=== PATIENT | female | born 1965 | race American Indian/Alaskan Native ===

== ENCOUNTER 2017-10-21 13:22 | Emergency (ER) | payer OTHER ==
[2017-10-21 13:44] VITALS: O2SAT 100
[2017-10-21 14:22] LABS: BASO # 0.1 K/uL (0.0-0.2); EOS # 0.1 K/uL (0.0-0.7); EOS % 1.8 % (0.0-4.0); HEMOGLOBIN 14.8 g/dL (11.0-16.0); LYMPH # 2.2 K/uL (1.0-4.3); LYMPH % 32.6 % (20.0-40.0); MEAN CELL VOLUME 86.6 fL (81.0-99.0); MEAN CORPUSCULAR HEMOGLOBIN 28.5 pg (27.0-31.0); MEAN CORPUSCULAR HGB CONC 32.9 g/dL (33.0-37.0); MEAN PLATELET VOLUME 7.8 fL (7.2-11.7); MONO # 0.4 K/uL (0.0-0.8); MONO % 6.6 % (0.0-10.0); NEUT # 3.9 K/uL (1.8-7.0); RBC 5.18 Mil/uL (3.80-5.20); RED CELL DISTRIBUTION WIDTH 13.5 % (11.5-14.5); WHITE BLOOD COUNT 6.8 K/uL (4.8-10.8)
[2017-10-21 14:26] LABS: HCG,QUALITATIVE URINE NEGATIVE (NEGATIVE)
[2017-10-21 14:33] LABS: CALCIUM 9.8 mg/dl (8.6-10.4); GFR AFRICAN-AMERICAN > 60; GFR NON-AFRICAN AMERICAN > 60
[2017-10-21 14:35] LABS: SQUAMOUS EPITHIAL 4 /hpf (0-5); URINE BACTERIA RARE (<OCC); URINE BILIRUBIN NEGATIVE (NEGATIVE); URINE BLOOD 1+ (NEGATIVE); URINE CLARITY Clear (Clear); URINE COLOR Yellow (YELLOW); URINE GLUCOSE (UA) NORMAL (Normal); URINE LEUKOCYTE ESTERASE TRACE Leu/uL (Negative); URINE PROTEIN NEGATIVE (NEGATIVE); URINE UROBILINOGEN NORMAL mg/dL (0.2-1.0)
[2017-10-21 14:55] LABS: ALB/GLOB RATIO 1.4 (1.0-2.1); ALBUMIN 4.5 g/dL (3.5-5.0); ALT/SGPT 15 U/L (9-52); AST/SGOT 29 U/L (14-36); BLOOD UREA NITROGEN 17 mg/dL (7-17)
--- NOTE | 2017-10-21 15:28 | C.PDOC ---
History Of Present Illness 52-year-old female presents to the emergency department complaining of elevated blood pressure since yesterday. Patient states that her pressure was 180-190s systolic at home. She denies hx of hypertension, but states she checks it regularly at home because she has a family history of HTN. She admits to similar episode last summer which resolved spontaneously. Patient is currently complaining of a mild left sided headache. She denies visual changes, nausea/ vomiting, dizziness, chest pain, shortness of breath, palpitations, dietary indiscretions, medication changes, sensory changes, facial droop, slurred speech , extremity weakness, or any other associated symptoms. Time Seen by Provider: 10/21/17 13:49 Chief Complaint (Nursing): High Blood Pressure History Per: Patient History/Exam Limitations: no limitations Onset/Duration Of Symptoms: Days Current Symptoms Are (Timing): Still Present Severity: Mild Exacerbating Factor(s): Pos: None Past Medical History Reviewed: Historical Data, Nursing Documentation, Vital Signs Vital Signs: Last Vital Signs Temp 99.3 F 10/21/17 15:43 Pulse 61 10/21/17 15:43 Resp 12 10/21/17 15:43 BP 169/90 H 10/21/17 15:43 Pulse Ox 100 10/21/17 17:58 - Medical History PMH: No Chronic Diseases Family History: States: No Known Family Hx - Social History Hx Alcohol Use: Yes Hx Substance Use: No - Immunization History Hx Tetanus Toxoid Vaccination: No Hx Influenza Vaccination: No Hx Pneumococcal Vaccination: No Review Of Systems Constitutional: Negative for: Fever, Chills Cardiovascular: Negative for: Chest Pain, Palpitations Respiratory: Negative for: Shortness of Breath Gastrointestinal: Negative for: Nausea, Vomiting, Abdominal Pain, Diarrhea Genitourinary: Negative for: Dysuria, Hematuria Musculoskeletal: Negative for: Neck Pain, Back Pain Neurological: Positive for: Headache. Negative for: Weakness, Numbness, Dizziness Physical Exam - Physical Exam Appears: Well, Non-toxic, No Acute Distress Skin: Normal Color, Warm, Dry, No Rash Head: Atraumatic, Normacephalic Eye(s): bilateral: Normal Inspection, PERRL, EOMI Oral Mucosa: Moist Neck: Normal, Normal ROM Cardiovascular: Rhythm Regular Respiratory: Normal Breath Sounds, No Rales, No Rhonchi, No Wheezing Gastrointestinal/Abdominal: Normal Exam, Bowel Sounds, Soft, No Tenderness Back: Normal Inspection Extremity: Normal ROM, No Pedal Edema, No Calf Tenderness Pulses: Left Dorsalis Pedis: Normal, Right Dorsalis Pedis: Normal Neurological/Psych: Oriented x3, Normal Speech, Normal Cognition, Normal Cranial Nerves, No Cerebellar Signs, Normal Motor, Normal Sensation Gait: Steady ED Course And Treatment - Laboratory Results Result Diagrams: 10/21/17 14:16 10/21/17 14:16 O2 Sat by Pulse Oximetry: 100 (RA) Pulse Ox Interpretation: Normal Progress Note: Bloodwork and UA, Upreg ordered and reviewed. Reevaluation Time: 15:30 Reassessment Condition: Improved (On reassessment, patient is resting comfortably and headache has resolved. BP has improved, and patient is well appearing and comfortable being dicharged home. Patient instructed to follow up with PMD in 1-2 days, and understands she should return to ED if symptoms worsen.) Disposition Counseled Patient/Family Regarding: Studies Performed, Diagnosis, Need For Followup - Disposition Referrals: Linda Staley MD [Staff Provider] - Disposition: HOME/ ROUTINE Disposition Time: 15:30 Condition: STABLE Additional Instructions: FOLLOW UP WITH YOUR DOCTOR IN 1-2 DAYS RETURN TO ER IF YOU HAVE ANY CONCERNING SYMPTOMS Instructions: High Blood Pressure (DC) Forms: [employer] (American) Print Language: CITIZEN OF [place] - Clinical Impression Clinical Impression: Blood pressure elevated without history of HTN - Scribe Statement The provider has reviewed the documentation as recorded by the Scribe (Chemo Avila) All medical record entries made by the Scribe were at my direction and personally dictated by me. I have reviewed the chart and agree that the record accurately reflects my personal performance of the history, physical exam, medical decision making, and the department course for this patient. I have also personally directed, reviewed, and agree with the discharge instructions and disposition.
[2017-10-21 15:44] VITALS: BP 169/90; PULSE 61; RESP 12; TEMP 99.3
== END 2017-10-21 15:44 | disposition home or self-care (01) ==
LOC: C.ER 13:22
DX: R03.0 Elevated blood-pressure reading, without diagnosis of hypertension (principal)

== ENCOUNTER 2017-10-27 15:07 | Emergency (ER) | payer OTHER ==
[2017-10-27] MEDS ORDERED: Enalaprilat 2.5 MG/2 ML IV STA (22:13)
[2017-10-27 22:29] LABS: BASO % 0.6 % (0.0-2.0); EOS # 0.2 K/uL (0.0-0.7); EOS % 2.6 % (0.0-4.0); HEMOGLOBIN 15.5 g/dL (11.0-16.0); LYMPH # 2.6 K/uL (1.0-4.3); LYMPH % 38.2 % (20.0-40.0); MEAN CELL VOLUME 86.1 fL (81.0-99.0); MEAN CORPUSCULAR HEMOGLOBIN 28.2 pg (27.0-31.0); MEAN CORPUSCULAR HGB CONC 32.8 g/dL (33.0-37.0); MEAN PLATELET VOLUME 7.6 fL (7.2-11.7); MONO # 0.3 K/uL (0.0-0.8); MONO % 4.6 % (0.0-10.0); NEUT # 3.7 K/uL (1.8-7.0); NRBC % 0.1 % (0.0-2.0); RBC 5.49 Mil/uL (3.80-5.20); RED CELL DISTRIBUTION WIDTH 13.6 % (11.5-14.5); WHITE BLOOD COUNT 6.8 K/uL (4.8-10.8)
[2017-10-27] MEDS ORDERED: Enalaprilat 2.5 MG/2 ML ONE (22:31)
[2017-10-27 22:48] VITALS: O2SAT 100
[2017-10-27 22:54] LABS: ALB/GLOB RATIO 1.5 (1.0-2.1); ALBUMIN 4.3 g/dL (3.5-5.0); ALT/SGPT 28 U/L (9-52); AST/SGOT 18 U/L (14-36); BLOOD UREA NITROGEN 13 mg/dL (7-17); GFR AFRICAN-AMERICAN > 60; GFR NON-AFRICAN AMERICAN > 60
--- NOTE | 2017-10-27 23:22 | C.PDOC ---
Time Seen by Provider: 10/27/17 17:08 Chief Complaint (Nursing): High Blood Pressure History Per: Patient Onset/Duration Of Symptoms: Days Current Symptoms Are (Timing): Still Present Associated Symptoms: Headache Severity: Moderate Exacerbating Factor(s): Pos: None Additional History Per: Prior Records Past Medical History Reviewed: Historical Data, Nursing Documentation, Vital Signs Vital Signs: Last Vital Signs Temp 98.6 F 10/27/17 20:21 Pulse 67 10/27/17 22:48 Resp 11 L 10/27/17 22:48 BP 185/73 H 10/27/17 22:48 Pulse Ox 100 10/27/17 22:48 - Medical History PMH: No Chronic Diseases Family History: States: Unknown Family Hx - Social History Hx Alcohol Use: Yes Hx Substance Use: No - Immunization History Hx Tetanus Toxoid Vaccination: No Hx Influenza Vaccination: No Hx Pneumococcal Vaccination: No Review Of Systems Except As Marked, All Systems Reviewed And Found Negative. Constitutional: Negative for: Fever, Weakness Cardiovascular: Negative for: Chest Pain Respiratory: Negative for: Shortness of Breath Gastrointestinal: Negative for: Nausea, Vomiting, Abdominal Pain Musculoskeletal: Negative for: Neck Pain, Back Pain Neurological: Positive for: Headache. Negative for: Weakness, Numbness Physical Exam - Physical Exam Appears: Non-toxic, No Acute Distress Skin: Normal Color, Warm, Dry, No Rash Head: Atraumatic, Normacephalic Eye(s): bilateral: PERRL, EOMI Neck: Normal ROM, Supple Cardiovascular: Rhythm Regular Respiratory: Normal Breath Sounds, No Accessory Muscle Use Gastrointestinal/Abdominal: Soft, No Tenderness Extremity: Normal ROM, No Pedal Edema, No Calf Tenderness Neurological/Psych: Oriented x3, Normal Speech, Normal Motor, Normal Sensation ED Course And Treatment - Laboratory Results Result Diagrams: 10/27/17 22:26 10/27/17 22:26 Lab Interpretation: No Acute Changes O2 Sat by Pulse Oximetry: 100 Pulse Ox Interpretation: Normal - CT Scan/US CT head Other Rad Studies (CT/US): Read By Radiologist, Radiology Report Reviewed CT/US Interpretation: No acute findings. Disposition Counseled Patient/Family Regarding: Studies Performed, Diagnosis, Need For Followup, Rx Given - Disposition Referrals: [facility] at [facility] [Outside] Disposition: HOME/ ROUTINE Disposition Time: 23:22 Condition: IMPROVED Additional Instructions: Eat a low salt diet. Follow up in the clinic within 1 week for further evaluation and treatment. Return to the ER if you develop chest pain, shortness of breath, weakness, numbness, worsening of symptoms or if you have any other concerns. Prescriptions: hydroCHLOROthiazide [Hydrodiuril] 25 mg PO DAILY #30 tab Instructions: High Blood Pressure (DC), DASH Diet - Clinical Impression Clinical Impression: Hypertensive urgency
[2017-10-27 23:51] VITALS: BP 165/83; PULSE 60; RESP 14; TEMP 98.2
--- NOTE | 2017-10-28 07:34 | CT ---
PROCEDURE: CT HEAD WITHOUT CONTRAST HISTORY: Headaches. Hypertension COMPARISON: None available. TECHNIQUE: Axial computed tomography images were obtained through the head/brain without intravenous contrast. Coronal and sagittal reconstructions were also acquired. Radiation dose: Total exam DLP = 896 mGy-cm. FINDINGS: HEMORRHAGE: No intracranial hemorrhage seen. BRAIN: No intracranial mass identified. Old lacunar infarct noted right parietal lobe and left basal ganglia.Intracranial atherosclerosis noted. VENTRICLES: Unremarkable. No hydrocephalus. CALVARIUM: Intact PARANASAL SINUSES: Visualized paranasal sinuses are clear. MASTOID AIR CELLS: Visualized mastoid air cells are clear. OTHER FINDINGS: None. IMPRESSION: No mass, hemorrhage, or acute infarct identified. Preliminary impression was provided by [employer]. Findings are concordant.
--- NOTE | 2017-10-28 14:40 | CARD ---
APPROVED REPORT Date of service: 10/27/2017 EKG Measurement Heart [id number] <Conclusion> Normal sinus rhythm Voltage criteria for left ventricular hypertrophy Nonspecific T wave abnormality Abnormal ECG
== END 2017-10-27 23:49 | disposition home or self-care (01) ==
LOC: C.ER 15:07
DX: I16.0 Hypertensive urgency (principal)

== ENCOUNTER 2017-11-04 12:52 | Emergency (ER) | payer OTHER ==
[2017-11-04 13:05] VITALS: BMI 25.7
[2017-11-04] MEDS ORDERED: Enalaprilat 2.5 MG/2 ML IV ONE (13:42)
[2017-11-04] MEDS ORDERED: Enalaprilat 2.5 MG/2 ML ONE (13:53)
[2017-11-04 13:58] LABS: BASO % 0.8 % (0.0-2.0); EOS # 0.1 K/uL (0.0-0.7); EOS % 1.8 % (0.0-4.0); HEMOGLOBIN 15.1 g/dL (11.0-16.0); LYMPH # 2.1 K/uL (1.0-4.3); LYMPH % 33.8 % (20.0-40.0); MEAN CELL VOLUME 86.8 fL (81.0-99.0); MEAN CORPUSCULAR HEMOGLOBIN 28.5 pg (27.0-31.0); MEAN CORPUSCULAR HGB CONC 32.9 g/dL (33.0-37.0); MEAN PLATELET VOLUME 8.1 fL (7.2-11.7); MONO # 0.3 K/uL (0.0-0.8); MONO % 5.5 % (0.0-10.0); NEUT # 3.6 K/uL (1.8-7.0); NEUT % 58.1 % (50.0-75.0); NRBC % 0.1 % (0.0-2.0); RBC 5.29 Mil/uL (3.80-5.20); RED CELL DISTRIBUTION WIDTH 13.3 % (11.5-14.5); WHITE BLOOD COUNT 6.2 K/uL (4.8-10.8)
[2017-11-04 14:11] LABS: ALB/GLOB RATIO 1.4 (1.0-2.1); ALBUMIN 4.6 g/dL (3.5-5.0); ALT/SGPT 17 U/L (9-52); AST/SGOT 21 U/L (14-36); BLOOD UREA NITROGEN 14 mg/dL (7-17); CALCIUM 10.4 mg/dl (8.6-10.4); GFR AFRICAN-AMERICAN > 60; GFR NON-AFRICAN AMERICAN > 60
[2017-11-04 14:22] LABS: B-TYPE NATRIURETIC PEPTIDE 35.9 pg/mL (0-900)
[2017-11-04 14:27] VITALS: O2SAT 100
--- NOTE | 2017-11-04 14:55 | RAD ---
Date of service: 11/04/2017 PROCEDURE: CHEST RADIOGRAPH, 1 VIEW HISTORY: HTN COMPARISON: None available. FINDINGS: LUNGS: Clear. PLEURA: No pneumothorax or pleural fluid seen. CARDIOVASCULAR: Normal heart size. Calcified aortic knob. OSSEOUS STRUCTURES: No significant abnormalities. VISUALIZED UPPER ABDOMEN: Normal. OTHER FINDINGS: There is asymmetrical prominence of the left sided breast/ left hemithoracic soft tissues -correlate clinically IMPRESSION: No acute cardiopulmonary pathology re- shaped. Asymmetry in soft tissues as above.
--- NOTE | 2017-11-04 15:43 | C.PDOC ---
History Of Present Illness Pt was sent in by the clinic for elevated blood pressure. Pt is currently on HCTZ 25mg daily. Clinic sent Rx for HCTZ 50mg qd and Amlodipine 5mg qd. Time Seen by Provider: 11/04/17 13:18 Chief Complaint (Nursing): High Blood Pressure History Per: Patient Onset/Duration Of Symptoms: Hrs (today) Current Symptoms Are (Timing): Still Present Associated Symptoms: Headache Severity: Moderate Exacerbating Factor(s): Pos: None Additional History Per: Prior Records Past Medical History Reviewed: Historical Data, Nursing Documentation, Vital Signs Vital Signs: Last Vital Signs Temp 97.5 F L 11/04/17 13:10 Pulse 58 L 11/04/17 15:07 Resp 13 11/04/17 15:07 BP 150/82 11/04/17 15:07 Pulse Ox 100 11/04/17 15:07 - Medical History PMH: HTN Family History: States: Unknown Family Hx - Social History Hx Alcohol Use: Yes Hx Substance Use: No - Immunization History Hx Tetanus Toxoid Vaccination: No Hx Influenza Vaccination: No Hx Pneumococcal Vaccination: No Review Of Systems Except As Marked, All Systems Reviewed And Found Negative. Constitutional: Negative for: Fever Cardiovascular: Negative for: Chest Pain Respiratory: Negative for: Shortness of Breath Gastrointestinal: Negative for: Vomiting, Abdominal Pain Musculoskeletal: Negative for: Neck Pain, Back Pain Neurological: Positive for: Headache. Negative for: Weakness, Numbness, Confusion, Seizures Physical Exam - Physical Exam Appears: Non-toxic, No Acute Distress Skin: Normal Color, Warm, Dry Head: Atraumatic, Normacephalic Eye(s): bilateral: PERRL, EOMI Neck: Normal ROM, Supple Cardiovascular: Rhythm Regular Respiratory: Normal Breath Sounds, No Accessory Muscle Use Gastrointestinal/Abdominal: Soft, No Tenderness Extremity: Normal ROM, No Pedal Edema, No Calf Tenderness Neurological/Psych: Oriented x3, Normal Speech, Normal Cognition, Normal Motor, Normal Sensation ED Course And Treatment - Laboratory Results Result Diagrams: 11/04/17 13:47 11/04/17 13:47 Lab Interpretation: No Acute Changes ECG: Interpreted By Me, Viewed By Me ECG Rhythm: Sinus Bradycardia, Nonspecific Changes Interpretation Of ECG: LVH Rate From EC O2 Sat by Pulse Oximetry: 100 Pulse Ox Interpretation: Normal - Radiology CXR: Viewed By Me, Read By Radiologist CXR Interpretation: Yes: No Acute Disease, Heart Size (wnl) Progress - Interventions Interventions:: Observation - Medications Administered Oral: Acetaminophen, Antihypertensive (given in clinic (Amlodipine 5mg)) Intravenous: Antihypertensive - Data Reviewed Data Reviewed: Lab, Diagnostic imaging, EKG, Old records - Patient Status Patient status: Mostly improved - Continuity of Care Discussed patient case with:: Patient, ED Nurse - Patient Plan Patient Plan: Discharge, F/U with PCP Disposition Counseled Patient/Family Regarding: Studies Performed, Diagnosis, Need For Followup - Disposition Referrals: [facility] [Outside] Disposition: HOME/ ROUTINE Disposition Time: 15:45 Condition: IMPROVED Additional Instructions: Eat a low Sodium (low salt) diet. Take your medications as prescribed. Follow up in the clinic within 1-2 weeks for further evaluation and treatment. Return to the ER if you develop chest pain, shortness of breath, weakness, numbness, confusion, severe headache, vomiting, worsening of symptoms or if you have any other concerns. Instructions: High Blood Pressure (DC) - Clinical Impression Clinical Impression: Uncontrolled hypertension
[2017-11-04 16:13] VITALS: BP 146/78; PULSE 61; RESP 14; TEMP 97.8
--- NOTE | 2017-11-05 15:33 | CARD ---
APPROVED REPORT Date of service: 11/04/2017 EKG Measurement Heart [id number] [place] 130P35 [id number] <Conclusion> Sinus bradycardia Voltage criteria for left ventricular hypertrophy Abnormal ECG
== END 2017-11-04 16:18 | disposition home or self-care (01) ==
LOC: C.ER 12:52
DX: I10 Essential (primary) hypertension (principal)

== ENCOUNTER 2018-08-20 11:11 | Outpatient (CLI) | payer OTHER, MEDICAID | END 2018-08-20 11:12 | disposition home or self-care (01) | LOC: C.MAMMO 11:11 | DX: N64.89 Other specified disorders of breast (principal) ==

== ENCOUNTER 2018-08-26 09:40 | Outpatient (CLI) | payer OTHER | END 2018-08-26 09:41 | disposition home or self-care (01) | LOC: C.USIC 09:40 | DX: D17.71 Benign lipomatous neoplasm of kidney (principal) ==